=== PATIENT | male | born 1995 | race Two or more races ===

== ENCOUNTER 2017-07-08 19:24 | Emergency (ER) | payer OTHER ==
[~2017-07-08] VITALS: Ht 167.6 cm; Wt 69.9 kg
[2017-07-08 19:51] VITALS: BP 111/64
[2017-07-08] MEDS ORDERED: IBUPROFEN600 MG ORAL (20:38)
[2017-07-08 20:40] VITALS: BP 111/64
--- NOTE | 2017-07-08 21:30 | Emergency Room Report ---
History of Present Illness General Chief Complaint: Upper Extremity Injury Source: Patient Present Illness HPI Patient present with complaints of right wrist forearm and biceps pain Patient reports that almost 24 hours ago while at work he was pulling out a pot It was heavier than what he had anticipated and essentially sustained an injury with a hyperextension of the right wrist Pain is worse with movement of the thumb Patient also complains of pain to the forearm and biceps area on the same arm patient has previous surgery and hardware in the forearm Denies any other neck pain or trauma pain is 5/10 worse with movement Allergies: Coded Allergies: No Known Allergies (Unverified , 07/08/17) Patient History Past Medical History: see triage record Pertinent Family History: none Reviewed Nursing Documentation: PMH: Agreed, PSxH: Agreed Nursing Documentation-PMH Past Medical History: No Stated History Review of Systems All Other Systems: negative except mentioned in HPI Physical Exam Vital Signs Date Time Temp Pulse Resp B/P (MAP) Pulse Ox O2 Delivery O2 Flow Rate FiO2 07/08/17 19:37 97.9 57 16 107/64 100 Room Air Sp02 EP Interpretation: reviewed, normal General Appearance: well appearing, no apparent distress Head: normocephalic, atraumatic Eyes: bilateral eye PERRL, bilateral eye EOMI ENT: normal pharynx Neck: supple Respiratory: lungs clear Musculoskeletal: other - Discomfort on palpation of the base of the right thumb , tender with extension of the wrists, pain with full extension of the elbow as well and the bicep area no other ecchymosis mild swelling was noted that the palmar aspect of the wrist. Neurologic: alert, oriented x3, responsive Skin: no rash Lymphatic: no adenopathy Procedures Splinting Splinting : Consent: Verbal Location: right wrist Pre-Made Type: velcro Splint: thumb spica Pre-Proc Neuro Vasc Exam: normal Post-Proc Neuro Vasc Exam: normal Patient Tolerated: Well Complications: None Medical Decision Making Diagnostic Impression: Primary Impression: Injury of upper extremity Additional Impression: wrist sprain ER Course Given the patient's injury History imaging was obtained which was negative for acute fractures patient however was placed into a splint as noted above Remains neurovascularly intact and requires close outpatient workers compensation followup Other X-Ray Diagnostic Results Other X-Ray Diagnostic Results #1: X-Ray ordered: right wrist # of Views/Limited Vs Complete: 3 View Indication: Pain EP Interpretation: Yes Interpretation: no dislocation, no soft tissue swelling, no fractures Impression: No acute disease Electronically Signed by: Kristen Dodson DO Other X-Ray Diagnostic Results #2: X-Ray ordered: right forearm # of Views/Limited Vs Complete: 2 View Indication: Pain EP Interpretation: Yes Interpretation: no dislocation, no soft tissue swelling, no fractures Impression: No acute disease Electronically Signed by: Kristen Dodson DO Last Vital Signs Date Time Temp Pulse Resp B/P (MAP) Pulse Ox O2 Delivery O2 Flow Rate FiO2 07/08/17 20:40 97.9 80 16 111/64 100 Room Air Status: improved Disposition: HOME, SELF-CARE Condition: Improved Scripts Ibuprofen* (MOTRIN*) 600 Mg Tablet 600 MG ORAL Q8H Y for For Pain, #20 TAB 0 Refills Prov: KRISTNE DODSON D.O. 07/08/17 Referrals: NOT CHOSEN [facility]/MD,REFERRING (PCP) Patient Instructions: Wrist Sprain Additional Instructions: Patient is provided with the discharge instructions notified to follow up with primary doctor in the next 2-3 days otherwise return to the er with any worsening symptoms. Please note that this report is being documented using [employer] technology. This can lead to erroneous entry secondary to incorrect interpretation by the dictating instrument. KRISTEN DODSON D.O. Jul 08, 2017 21:30
--- NOTE | 2017-07-09 08:57 | Diagnostic Imaging Report ---
Clinical Indication:PAIN Technique: 3 views of the right wrist Comparison: None Findings: No acute fractures. No dislocations. Joint spaces are preserved Impression: Negative This agrees with the preliminary interpretation provided by the emergency room physician
--- NOTE | 2017-07-09 08:58 | Diagnostic Imaging Report ---
Indication: PAIN Technique: 3 views right hand Comparison: none Findings: No acute fractures. No dislocations. Joint spaces are preserved Impression: Negative This agrees with the preliminary interpretation provided by the emergency room physician
== END 2017-07-08 20:40 | disposition home or self-care (01) ==
LOC: EMR 19:50
DX: S63.501A Unspecified sprain of right wrist, initial encounter (principal); M79.631 Pain in right forearm; T14.90XA Injury, unspecified, initial encounter; X50.0XXA Overexertion from strenuous movement or load, initial encounter; Y93.9 Activity, unspecified; Y99.0 Civilian activity done for income or pay
CPT/HCPCS: 99284